=== PATIENT | male | born 1960 | race Two or more races ===

== ENCOUNTER 2017-03-21 01:12 | Emergency (ER) | payer BC ==
[2017-03-21 01:39] VITALS: PULSE 98; TEMP 98.4; BMI 34.0
--- NOTE | 2017-03-21 01:43 | PDOC ---
History of Present Illness - General Chief Complaint: Blood Pressure Problem Stated Complaint: HIGH BP Time Seen by Provider: 03/21/17 01:42 - History of Present Illness Initial Comments: 03/21/17 01:52 Mr. Ramos is a 56 yo male w/ pmh of htn who presents after he took his BP at home and noted it was 220/120. He also thinks he has some foot swelling lately. Upon arrival at ER BP was noted to be 184/97 and he now believes his cuff at home to be faulty. He does not take any medications for his BP and says that he is typically able to control it with diet and exercise. He otherwise has no complaints. The patient denies chest pain, shortness of breath, headache and dizziness. Denies fever, chills, nausea, vomit, diarrhea and constipation. Denies dysuria, frequency, urgency and hematuria. Allergies: NKDA 03/21/17 01:54 Past History - Past Medical History Allergies/Adverse Reactions: Allergies Allergy/AdvReac Type Severity Reaction Status Date / Time No Known Allergies Allergy Verified 03/21/17 01:29 Home Medications: Ambulatory Orders NK [No Known Home Medication] 03/21/17 COPD: No - Surgical History Appendectomy: Yes - Suicide/Smoking/Psychosocial Hx Smoking History: Never smoked Review of Systems - Review of Systems Comments:: 03/21/17 01:54 GENERAL/CONSTITUTIONAL: No fever or chills. No weakness. HEAD, EYES, EARS, NOSE AND THROAT: No change in vision. No ear pain or discharge. No sore throat. CARDIOVASCULAR: No chest pain or shortness of breath RESPIRATORY: No cough, wheezing, or hemoptysis. GASTROINTESTINAL: No nausea, vomiting, diarrhea or constipation. GENITOURINARY: No dysuria, frequency, or change in urination. MUSCULOSKELETAL: No joint or muscle swelling or pain. No neck or back pain. SKIN: No rash NEUROLOGIC: No headache, vertigo, loss of consciousness, or change in strength/ sensation. ENDOCRINE: No increased thirst. No abnormal weight change HEMATOLOGIC/LYMPHATIC: No anemia, easy bleeding, or history of blood clots. ALLERGIC/IMMUNOLOGIC: No hives or skin allergy. *Physical Exam - Vital Signs Last Vital Signs Temp Pulse Resp BP Pulse Ox 98.4 F 98 H 18 184/97 100 03/21/17 01:30 03/21/17 01:30 03/21/17 01:30 03/21/17 01:30 03/21/17 01:30 - Physical Exam Comments: 03/21/17 01:55 GENERAL: Awake, alert, and fully oriented, in no acute distress HEAD: No signs of trauma, normocephalic, atraumatic EYES: PERRLA, EOMI, sclera anicteric, conjunctiva clear ENT: Auricles normal inspection, hearing grossly normal, nares patent, oropharynx clear without exudates. Moist mucosa NECK: Normal ROM, supple, no lymphadenopathy, JVD, or masses LUNGS: No distress, speaks full sentences, clear to auscultation bilaterally HEART: Regular rate and rhythm, normal S1 and S2, no murmurs, rubs or gallops, peripheral pulses normal and equal bilaterally. ABDOMEN: Soft, nontender, normoactive bowel sounds. No guarding, no rebound. No masses EXTREMITIES: Normal inspection, Normal range of motion, no edema. No clubbing or cyanosis. NEUROLOGICAL: Cranial nerves II through XII grossly intact. Normal speech, normal gait, no focal sensorimotor deficits SKIN: Warm, Dry, normal turgor, no rashes or lesions noted. ED Treatment Course - LABORATORY CBC & Chemistry Diagram: 03/21/17 02:07 03/21/17 02:07 Medical Decision Making - Medical Decision Making 03/21/17 03:10 Patient presents with blood pressure 180's over 90's. Valsartan 80mg given for BP - EKG regular rate and rhythm, regular access regular intervals, no ST elevations or depression. Normal EKG. CXR negative. Repeat BP 160's over 80's. Will d/c patient with instructions to f/u with primary care provider for outpatient BP control. *DC/Admit/Observation/Transfer Diagnosis at time of Disposition: Hypertension Qualifiers: Hypertension type: unspecified Qualified Code(s): I10 - Essential (primary) hypertension - Discharge Dispostion Disposition: HOME - Referrals Referrals: Romeo Lopez MD [Staff Physician] - - Patient Instructions Printed Discharge Instructions: DI for High Blood Pressure Additional Instructions: Please follow-up with primary care as discussed. Return to ER if any fever, difficulty breathing, or other concerning symptoms. - Post Discharge Activity
[2017-03-21] MEDS ORDERED: VALSARTAN 80 MG TABLET (UD) PO ONE (01:58)
[2017-03-21] MEDS ORDERED: VALSARTAN 80 MG TABLET (UD) ONE (02:08)
[2017-03-21 02:18] LABS: BASOPHIL 0.4 % (0-2.0); EOSINOPHIL 2.3 % (0-4.5); MCH 29.2 pg (25.7-33.7); MCHC 34.4 g/dl (32.0-35.9); MEAN CELL VOLUME 84.9 fl (80-96); MEAN PLT VOLUME 8.5 fl (7.5-11.1); NEUTROPHILS 55.9 % (42.8-82.8); PLATELET COUNT 140 K/MM3 (134-434); RDW 13.9 % (11.9-15.9); WHITE BLOOD COUNT 6.3 K/mm3 (4.0-10.0)
[2017-03-21 02:52] LABS: ALBUMIN 3.9 g/dl (3.4-5.0); ANION GAP 7 (8-16); BILIRUBIN,TOTAL 0.7 mg/dL (0.2-1.0); CALCIUM 8.5 mg/dL (8.5-10.1); CO2 27 mmol/L (21-32); GLUCOSE,RANDOM 107 mg/dL (74-106); SGOT/AST 19 U/L (15-37); SGPT/ALT 30 U/L (12-78); TOT PROT 7.4 g/dl (6.4-8.2)
[2017-03-21 02:55] LABS: ALK PHOS 56 U/L (45-117); CPK 121 IU/L (39-308); TROPONIN I < 0.02 ng/ml (0.00-0.05)
[2017-03-21 03:00] VITALS: BP 161/82
--- NOTE | 2017-03-21 12:49 | EKG ---
Test Reason : Blood Pressure : / mmHG Vent. Rate : 089 BPM Atrial Rate : 089 BPM P-R Int : 186 ms QRS Dur : 090 ms QT Int : 348 ms P-R-T Axes : 059 026 057 degrees QTc Int : 423 ms NORMAL SINUS RHYTHM POSSIBLE LEFT ATRIAL ENLARGEMENT CANNOT RULE OUT ANTERIOR INFARCT , AGE UNDETERMINED ABNORMAL ECG NO PREVIOUS ECGS AVAILABLE Confirmed by DEB YANES MD ([id number]) on 03/21/2017 12:49:16 PM Referred By: Confirmed By:DEB YANES MD
== END 2017-03-21 03:37 | disposition home or self-care (01) ==
LOC: JER 01:12
DX: I10 Essential (primary) hypertension (principal)
CPT/HCPCS: 36415; 71020-TC; 80053; 82550; 84484; 85025; 93005; 93010; 99281-25

== ENCOUNTER 2020-07-02 02:11 | Emergency (ER) | payer BC ==
[2020-07-02 02:28] VITALS: PULSE 94; TEMP 98.2; BMI 29.5
[2020-07-02 02:57] LABS: BASO % 0.5 % (0-2.0); EOS % 2.5 % (0-4.5); HEMATOCRIT 45.2 % (35.4-49); HEMOGLOBIN 15.5 GM/dL (11.7-16.9); MCH 29.6 pg (25.7-33.7); MCHC 34.2 g/dl (32.0-35.9); MEAN CELL VOLUME 86.4 fl (80-96); MEAN PLT VOLUME 8.6 fl (7.5-11.1); MONO % 8.1 % (3.8-10.2); NEUT % 49.9 % (42.8-82.8); PLATELET COUNT 153 K/MM3 (134-434); RBC 5.24 M/mm3 (4.00-5.60); RDW 13.5 % (11.9-15.9); WHITE BLOOD COUNT 5.8 K/mm3 (4.0-10.0)
[2020-07-02 03:51] LABS: ALBUMIN 4.3 g/dl (3.4-5.0); ALK PHOS 56 U/L (45-117); ANION GAP 9 MMOL/L (8-16); BILIRUBIN,TOTAL 1.2 mg/dL (0.2-1); BLOOD UREA NITROGEN 14.9 mg/dL (7-18); CALCIUM 9.1 mg/dL (8.5-10.1); CHLORIDE 105 mmol/L (98-107); CO2 25 mmol/L (21-32); CREATININE 1.2 mg/dL (0.55-1.3); GLUCOSE,RANDOM 91 mg/dL (74-106); POTASSIUM 3.7 mmol/L (3.5-5.1); SGOT/AST 15 U/L (15-37); SGPT/ALT 22 U/L (13-61); SODIUM 139 mmol/L (136-145)
[2020-07-02] MEDS ORDERED: HYDROCHLOROTHIAZIDE 25 MG TABLET (FP) PO ONE (04:00)
[2020-07-02] MEDS ORDERED: HYDROCHLOROTHIAZIDE 25 MG TABLET (FP) ONE (04:01)
[2020-07-02 05:25] VITALS: BP 179/101
== END 2020-07-02 05:26 | disposition home or self-care (01) ==
LOC: JER 02:11
DX: I10 Essential (primary) hypertension (principal)
CPT/HCPCS: 36415; 71045-TC-FY; 80053; 84484; 85025; 93005; 93010; 99285-25